=== PATIENT | male | born 1955 | race African-American/Black ===

== ENCOUNTER 2024-05-11 07:59 | Outpatient (CLI) | payer MEDICARE | END 2024-05-11 08:00 | disposition home or self-care (01) | LOC: NM 07:59 | PROVIDERS: ATTEND Psychiatry & Neurology Neurology | DX: R25.1 Tremor, unspecified (principal); R93.89 Abnormal findings on diagnostic imaging of other specified body structures | CPT/HCPCS: 78803; A9584 ×2 ==